=== PATIENT | female | born 1960 | race Caucasian/White ===

== ENCOUNTER 2020-04-20 13:34 | Emergency (ER) | payer SELFPAY ==
[~2020-04-20] VITALS: Ht 170.2 cm; Wt 86.2 kg
[2020-04-20] MEDS ORDERED: KETOROLAC TROMETH 60MG/2ML VIAL IM ONE (14:15)
[2020-04-20 15:08] VITALS: BP 135/95
== END 2020-04-20 15:19 | disposition home or self-care (01) ==
LOC: ER 13:34
DX: M16.12 Unilateral primary osteoarthritis, left hip (principal); M51.36 Other intervertebral disc degeneration, lumbar region; M54.16 Radiculopathy, lumbar region; F17.210 Nicotine dependence, cigarettes, uncomplicated; Z88.0 Allergy status to penicillin; Z88.5 Allergy status to narcotic agent
CPT/HCPCS: 72100; 73502; 96372; 99284; J1885

== ENCOUNTER 2023-03-17 18:32 | Emergency (ER) | payer OTHER | END 2023-03-17 19:44 | disposition left against medical advice (07) | LOC: ER 18:32 | DX: R06.02 Shortness of breath (principal); Z53.21 Procedure and treatment not carried out due to patient leaving prior to being seen by health care provider ==

== ENCOUNTER 2023-03-18 06:01 | Inpatient (IN) | payer OTHER ==
[~2023-03-18] VITALS: Ht 170.2 cm; Wt 79.1 kg
[2023-03-18 07:15] LABS: COVID19 ANTIGEN SOFIA FIA NEGATIVE (NEGATIVE)
[2023-03-18 07:35] LABS: Basophils # (auto) 0 10 ^3/uL (0-0.2); Basophils % (auto) 0.2 % (0.0-2.0); Eosinophils # (auto) 0 10 ^3/uL (0-0.8); Hematocrit 43.1 % (36.0-46.0); Hemoglobin 15.1 g/dL (12.2-16.2); Lymphocytes # (auto) 0.5 10 ^3/uL (0.4-5.4); Lymphocytes % (auto) 2.5 % (10.0-50.0); Mean Corpuscular Hemoglobin 33.2 pg (28.0-32.0); Mean Corpuscular Hgb Conc. 35.1 g/dL (32.0-36.0); Mean Corpuscular Volume 94.6 fL (80.0-100.0); Monocytes % (auto) 4.9 % (0.0-12.0); Neutrophils # (auto) 18.2 10 ^3/uL (1.6-8.6); Neutrophils % (auto) 92.4 % (37.0-80.0); Nucleated Red Blood Cells % 0.1 %; Red Blood Cells 4.55 10^6/uL (4.0-5.20); Red Cell Distribution Width 13.2 % (11.8-14.3); White Blood Cell 19.7 10^3/uL (4.4-10.8)
[2023-03-18] MEDS ORDERED: SODIUM CHLORIDE 0.9% 2,100 ML IV ONE (07:45)
[2023-03-18] MEDS ORDERED: levoFLOXacin 500MG 100 ML IV ONE (07:45)
[2023-03-18] MEDS ORDERED: VANCOMYCIN 1GM/250ML 250 ML IV ONE (07:45)
[2023-03-18 08:09] LABS: Alanine Aminotransferase 24 U/L (7-40); Alkaline Phosphatase 109 U/L (46-116); Anion Gap 12 (5-15); Aspartate Aminotransferase 21 U/L (13-40); BUN/Creatinine Ratio 18.9 (10.0-20.0); Blood Urea Nitrogen 46 mg/dL (9-23); Carbon Dioxide 23 mmol/L (20-30); Chloride 100 mmol/L (98-107); Glucose 127 mg/dL (74-106); Lactic Acid w/Reflex 2.1 mmol/L (0.4-2.0); Potassium 3.4 mmol/L (3.5-5.1); Sodium 135 mmol/L (136-145)
[2023-03-18 08:18] LABS: Calcium 9.1 mg/dL (8.5-10.1)
[2023-03-18 08:20] VITALS: PULSE 102; RESP 20; O2SAT 92
[2023-03-18 09:30] LABS: Magnesium 1.8 mg/dL (1.6-2.6)
[2023-03-18] MEDS ORDERED: ONDANSETRON HCL 4 MG/2 ML VIAL IV PRN (11:00)
[2023-03-18] MEDS ORDERED: POTASSIUM EFFERVESENT TAB 25 MEQ GT ONE (11:00)
[2023-03-18] MEDS ORDERED: MORPHINE SULFATE INJ 2 MG/ml SYRG IV PRN (11:00)
[2023-03-18] MEDS ORDERED: VANCOMYCIN PER PHARMACY 0 MG IV SCH (11:00)
[2023-03-18] MEDS ORDERED: DOCUSATE SOD 100 MG CAP PO PRN (11:00)
[2023-03-18] MEDS ORDERED: GASTROGRAFIN 30 ML SOL ONE (11:03)
[2023-03-18] MEDS: SODIUM CHLORIDE 0.9% 1,000 ML IV SCH ×2 (12:18→19:37)
[2023-03-18 15:51] LABS: Base Excess -2.3 mmol/L (-2.0-2.0)
[2023-03-18 15:56] LABS: Urine Bacteria FEW /hpf (None Seen); Urine Blood 3+ /uL (Negative); Urine Clarity CLOUDY (Clear); Urine Color Yellow (Yellow); Urine Hyaline Cast MOD /lpf (0 - 2); Urine Mucus FEW (None Seen); Urine Protein, UAD 3+ (Negative); Urine Specific Gravity 1.017 (1.001-1.035); Urine Urobilinogen Normal (Negative); Urine WBC 344 /hpf (0 - 5); Urine WBC Clumps PRESENT /hpf (None Seen)
[2023-03-18 16:01] LABS: Sodium Urine 28 mmol/L (40-220)
[2023-03-18 16:08] LABS: Amphetamine Screen, Urine Pos (NEGATIVE); Barbiturate Scree,Urine Neg (NEGATIVE); Benzodiazephine Screen, Urine Neg (NEGATIVE); Cannabinoid Screen, Urine Neg (NEGATIVE); Cocaine Screen, Urine Neg (NEGATIVE); Opiate Scree,Urine Neg (NEGATIVE); Phencyclidine Screen, Urine Neg (NEGATIVE)
[2023-03-18 16:09] LABS: Creatinine, Urine 136.59 mg/dL (30.0-125.0)
[2023-03-18 16:12] LABS: Protein, Urine 473.9 mg/dL (0.0-11.9); Urine Protein/Creatinine Ratio 3.47
[2023-03-18] MEDS: ACETAMINOPHEN 325 MG TAB PO PRN (17:02)
[2023-03-18] MEDS: TAMSULOSIN HYDROCHLORIDE 0.4 MG CAP PO SCH (18:16)
[2023-03-18 19:30] VITALS: PULSE 90; RESP 18
[2023-03-19 05:28] LABS: Basophils # (auto) 0 10 ^3/uL (0-0.2); Basophils % (auto) 0.1 % (0.0-2.0); Eosinophils # (auto) 0.1 10 ^3/uL (0-0.8); Eosinophils % (auto) 0.6 % (0.0-7.0); Hematocrit 35.7 % (36.0-46.0); Hemoglobin 12.3 g/dL (12.2-16.2); Lymphocytes # (auto) 0.3 10 ^3/uL (0.4-5.4); Lymphocytes % (auto) 3.3 % (10.0-50.0); Mean Corpuscular Hemoglobin 32.8 pg (28.0-32.0); Mean Corpuscular Hgb Conc. 34.3 g/dL (32.0-36.0); Mean Corpuscular Volume 95.5 fL (80.0-100.0); Monocytes # (auto) 0.6 10 ^3/uL (0-1.3); Monocytes % (auto) 6.2 % (0.0-12.0); Neutrophils # (auto) 9.3 10 ^3/uL (1.6-8.6); Neutrophils % (auto) 89.8 % (37.0-80.0); Nucleated Red Blood Cells % 0.1 %; Red Blood Cells 3.74 10^6/uL (4.0-5.20); Red Cell Distribution Width 13.5 % (11.8-14.3); White Blood Cell 10.3 10^3/uL (4.4-10.8)
[2023-03-19] MEDS: SODIUM CHLORIDE 0.9% 1,000 ML IV SCH ×3 (05:34→20:20)
[2023-03-19 05:39] LABS: Alanine Aminotransferase 20 U/L (7-40); Alkaline Phosphatase 77 U/L (46-116); Anion Gap 11 (5-15); Aspartate Aminotransferase 24 U/L (13-40); BUN/Creatinine Ratio 29.7 (10.0-20.0); Bilirubin, Total 0.5 mg/dL (0.2-1.0); Blood Urea Nitrogen 49 mg/dL (9-23); Calcium 8.2 mg/dL (8.5-10.1); Carbon Dioxide 21 mmol/L (20-30); Glucose 87 mg/dL (74-106); Potassium 3.3 mmol/L (3.5-5.1); Sodium 143 mmol/L (136-145); Total Protein 4.7 g/dL (5.7-8.2)
[2023-03-19 06:07] LABS: Chloride 111 mmol/L (98-107)
[2023-03-19 07:06] LABS: RPR Non Reactive (Non Reactive)
[2023-03-19 07:45] VITALS: PULSE 92; RESP 18; O2SAT 91
[2023-03-19] MEDS ORDERED: levoFLOXacin 500MG 100 ML IV SCH (10:00)
[2023-03-19] MEDS: VANCOMYCIN 1GM/250ML 250 ML IV ONE ×2 (11:13→13:04)
[2023-03-19 13:00] VITALS: BP 146/78; PULSE 90; RESP 16; TEMP 98; O2SAT 94
[2023-03-19] MEDS ORDERED: ATOR40TA52 PO (15:05)
[2023-03-19] MEDS ORDERED: CLOP75TA70 PO (15:05)
[2023-03-19 15:23] VITALS: BP 146/78; PULSE 90; RESP 16; O2SAT 94
[2023-03-19] MEDS: ACETAMINOPHEN 325 MG TAB PO PRN (15:29)
[2023-03-19 17:00] VITALS: BP 128/72; PULSE 98; RESP 18; TEMP 98.2; O2SAT 92
[2023-03-19] MEDS: TAMSULOSIN HYDROCHLORIDE 0.4 MG CAP PO SCH (18:05)
[2023-03-19 20:00] VITALS: BP 116/66; PULSE 77; PULSE 80; RESP 20; TEMP 98.1; O2SAT 94
[2023-03-19 22:00] VITALS: BP_SYST 116; BP_SYST 98; BP_DIAS 52; BP_DIAS 66; PULSE 58; PULSE 80; RESP 16; RESP 26; TEMP 97.9; TEMP 98.1; O2SAT 94; O2SAT 97
[2023-03-20] VITALS (9 sets, daily range): BP systolic 115–135; BP diastolic 66–73; PULSE 70–90; RESP 16–20; TEMP 97.7–98.9; O2SAT 91–98
[2023-03-20] MEDS: SODIUM CHLORIDE 0.9% 1,000 ML IV SCH ×2 (00:54→11:52)
[2023-03-20 05:49] LABS: Basophils # (auto) 0 10 ^3/uL (0-0.2); Basophils % (auto) 0.3 % (0.0-2.0); Eosinophils # (auto) 0.1 10 ^3/uL (0-0.8); Hematocrit 37.3 % (36.0-46.0); Hemoglobin 12.5 g/dL (12.2-16.2); Lymphocytes # (auto) 0.5 10 ^3/uL (0.4-5.4); Lymphocytes % (auto) 5.7 % (10.0-50.0); Mean Corpuscular Hemoglobin 33.3 pg (28.0-32.0); Mean Corpuscular Hgb Conc. 33.6 g/dL (32.0-36.0); Mean Corpuscular Volume 99.3 fL (80.0-100.0); Monocytes % (auto) 10.3 % (0.0-12.0); Neutrophils # (auto) 7.7 10 ^3/uL (1.6-8.6); Neutrophils % (auto) 82.7 % (37.0-80.0); Nucleated Red Blood Cells % 0.1 %; Red Blood Cells 3.76 10^6/uL (4.0-5.20); Red Cell Distribution Width 14.3 % (11.8-14.3); White Blood Cell 9.3 10^3/uL (4.4-10.8)
[2023-03-20] MEDS: cefTRIAXone 1GM/50ML D5W 50 ML IV SCH (10:03)
[2023-03-20 10:11] LABS: Chloride 108 mmol/L (98-107); Potassium 3.1 mmol/L (3.5-5.1); Sodium 138 mmol/L (136-145)
[2023-03-20 10:12] LABS: Anion Gap 9 (5-15); Carbon Dioxide 21 mmol/L (20-30)
[2023-03-20 10:13] LABS: Calcium 8.5 mg/dL (8.5-10.1)
[2023-03-20 10:17] LABS: BUN/Creatinine Ratio 22.5 (10.0-20.0); Glucose 91 mg/dL (74-106)
[2023-03-20 10:21] LABS: Blood Urea Nitrogen 25 mg/dL (9-23)
[2023-03-20] MEDS ORDERED: ERGOCALCIFEROL 50,000 UNIT(1.25MG) CAP PO SCH (14:45)
[2023-03-20] MEDS ORDERED: POTASSIUM EFFERVESENT TAB 25 MEQ PO ONE (15:30)
[2023-03-20] MEDS: ACETAMINOPHEN 325 MG TAB PO PRN ×2 (17:07→19:23)
[2023-03-20] MEDS: TAMSULOSIN HYDROCHLORIDE 0.4 MG CAP PO SCH (17:12)
[2023-03-20] MEDS ORDERED: ALBUTEROL SULF 2.5 MG/0.5ML(0.5%) NEB SOLN NEB ONE (18:15)
[2023-03-20] MEDS ORDERED: IPRATROPIUM BROM 0.5 MG/2.5ML INH SOL NEB ONE (18:15)
[2023-03-20] MEDS ORDERED: IPRATROPIUM BROM 0.5 MG/2.5ML INH SOL ONE (18:18)
[2023-03-20] MEDS ORDERED: ALBUTEROL MEDNEB 2.5 mg/3ml NEB ONE (18:18)
[2023-03-20 19:22] LABS: Chloride 108 mmol/L (98-107); Sodium 137 mmol/L (136-145)
[2023-03-20 19:23] LABS: Anion Gap 7 (5-15); Calcium 8.1 mg/dL (8.5-10.1); Carbon Dioxide 22 mmol/L (20-30)
[2023-03-20 19:28] LABS: BUN/Creatinine Ratio 19.6 (10.0-20.0); Blood Urea Nitrogen 20 mg/dL (9-23); Glucose 83 mg/dL (74-106)
[2023-03-20 20:46] LABS: Base Excess -3.3 mmol/L (-2.0-2.0)
[2023-03-21] VITALS: BP 120/66; PULSE 71; RESP 19; TEMP 98.2; O2SAT 92
[2023-03-21 05:00] VITALS: BP 135/70; PULSE 69; RESP 20; TEMP 97.9; O2SAT 92
[2023-03-21 08:00] VITALS: BP 132/56; PULSE 68; PULSE 70; RESP 22; TEMP 98.2; O2SAT 94
[2023-03-21] MEDS: cefTRIAXone 1GM/50ML D5W 50 ML IV SCH (10:18)
[2023-03-21] MEDS ORDERED: POTASSIUM EFFERVESENT TAB 25 MEQ PO ONE (10:45)
[2023-03-21 12:00] VITALS: BP 150/75; PULSE 76; RESP 20; TEMP 98.3; O2SAT 92
[2023-03-21] MEDS ORDERED: CIPR250T3 PO (13:14)
[2023-03-21 16:00] VITALS: BP 129/63; PULSE 75; RESP 21; TEMP 98; O2SAT 93
[2023-03-21] MEDS: TAMSULOSIN HYDROCHLORIDE 0.4 MG CAP PO SCH (18:00)
== END 2023-03-21 19:05 | disposition home or self-care (01) | DRG 720 ==
LOC: ER 06:01 → TELE 11:08 → TELE-CENTR 03-19 14:15
PROVIDERS: ADMIT Nurse Practitioner Family; ATTEND Internal Medicine Pulmonary Disease
DX: A41.51 Sepsis due to Escherichia coli [E. coli] (principal); J96.01 Acute respiratory failure with hypoxia; N17.0 Acute kidney failure with tubular necrosis; G93.41 Metabolic encephalopathy; K56.1 Intussusception; E87.21 Acute metabolic acidosis; E87.1 Hypo-osmolality and hyponatremia; N13.6 Pyonephrosis; E87.6 Hypokalemia; Z20.822 Contact with and (suspected) exposure to COVID-19; Z86.718 Personal history of other venous thrombosis and embolism; F17.210 Nicotine dependence, cigarettes, uncomplicated; R91.1 Solitary pulmonary nodule; E55.9 Vitamin D deficiency, unspecified; F15.90 Other stimulant use, unspecified, uncomplicated; I10 Essential (primary) hypertension; R65.20 Severe sepsis without septic shock; Z88.0 Allergy status to penicillin; Z88.5 Allergy status to narcotic agent
CPT/HCPCS: 36415; 36600; 70450; 71045; 71046; 74176; 74250; 78582; 80048; 80053; 80202; 80307; 80320; 81001; 82306; 82570; 82607; 82805; 82962; 83605; 83735; 83880; 84156; 84300; 84443; 84484; 85025; 85379; 86592; 87040; 87077; 87086; 87186; 87426; 93005; 93970; 94640; 96365; 96366; 99291; G0378; J0696; J1956; J2405

== ENCOUNTER 2023-03-27 13:12 | Emergency (ER) | payer OTHER ==
[~2023-03-27] VITALS: Ht 170.2 cm; Wt 72.7 kg
[~2023-03-27 13:12] MED LIST: ATOR40TA52 PO; CIPR250T3 PO; CLOP75TA70 PO
[2023-03-27 13:34] VITALS: BP 131/70; PULSE 104; RESP 23; O2SAT 91
[2023-03-27] MEDS ORDERED: VANCOMYCIN 1GM/250ML 250 ML IV ONE (13:45)
[2023-03-27 14:06] LABS: Eosinophils # (auto) 0.1 10 ^3/uL (0-0.8); Hemoglobin 12.3 g/dL (12.2-16.2); Lymphocytes # (auto) 0.7 10 ^3/uL (0.4-5.4); Red Cell Distribution Width 13.2 % (11.8-14.3)
[2023-03-27 14:07] LABS: Basophils # (auto) 0.2 10 ^3/uL (0-0.2); Basophils % (auto) 0.8 % (0.0-2.0); Eosinophils % (auto) 0.5 % (0.0-7.0); Lymphocytes % (auto) 2.8 % (10.0-50.0); Mean Corpuscular Hgb Conc. 34.3 g/dL (32.0-36.0); Mean Corpuscular Volume 93.5 fL (80.0-100.0); Monocytes # (auto) 0.8 10 ^3/uL (0-1.3); Monocytes % (auto) 3.3 % (0.0-12.0); Neutrophils # (auto) 23.2 10 ^3/uL (1.6-8.6); Neutrophils % (auto) 92.6 % (37.0-80.0); Red Blood Cells 3.85 10^6/uL (4.0-5.20)
[2023-03-27 14:10] LABS: Urine Bacteria NONE SEEN /hpf (None Seen); Urine Blood Negative /uL (Negative); Urine Clarity Clear (Clear); Urine Color Yellow (Yellow); Urine Hyaline Cast FEW /lpf (0 - 2); Urine Mucus FEW (None Seen); Urine Protein, UAD TRACE (Negative); Urine Specific Gravity 1.011 (1.001-1.035); Urine Urobilinogen Normal (Negative); Urine WBC 7 /hpf (0 - 5); Urine pH 6.5 (5.0-8.0)
[2023-03-27 14:22] LABS: Alanine Aminotransferase 36 U/L (7-40); Albumin 3.3 g/dL (3.2-4.8); Alkaline Phosphatase 90 U/L (46-116); Anion Gap 8 (5-15); Aspartate Aminotransferase 25 U/L (13-40); BUN/Creatinine Ratio 15.9 (10.0-20.0); Bilirubin, Total 0.8 mg/dL (0.2-1.0); Blood Urea Nitrogen 14 mg/dL (9-23); Calcium 8.1 mg/dL (8.7-10.4); Carbon Dioxide 33 mmol/L (20-30); Chloride 99 mmol/L (98-107); Glucose 111 mg/dL (74-106); Sodium 140 mmol/L (136-145); Total Protein 5.3 g/dL (5.7-8.2)
[2023-03-27 14:25] LABS: Potassium 2.5 mmol/L (3.5-5.1)
[2023-03-27] MEDS ORDERED: POTASSIUM EFFERVESENT TAB 25 MEQ PO ONE (14:30)
[2023-03-27 15:03] LABS: Amphetamine Screen, Urine Neg (NEGATIVE); Barbiturate Scree,Urine Neg (NEGATIVE); Benzodiazephine Screen, Urine Neg (NEGATIVE); Cannabinoid Screen, Urine Neg (NEGATIVE); Cocaine Screen, Urine Neg (NEGATIVE); Opiate Scree,Urine Neg (NEGATIVE); Phencyclidine Screen, Urine Neg (NEGATIVE)
[2023-03-27] MEDS ORDERED: levoFLOXacin 750MG 150 ML IV ONE (16:15)
[2023-03-27] MEDS ORDERED: ACETAMINOPHEN 325 MG TAB PO PRN (16:45)
[2023-03-27] MEDS ORDERED: MORPHINE SULFATE INJ 2 MG/ml SYRG IV PRN (16:45)
[2023-03-27] MEDS ORDERED: NITROGLYCERIN 0.4 MG SL TAB SL PRN (16:45)
[2023-03-27] MEDS ORDERED: ALBUTEROL MEDNEB 2.5 mg/3ml NEB NEB SCH (18:00)
[2023-03-27] MEDS ORDERED: IPRATROPIUM BROM 0.5 MG/2.5ML INH SOL NEB SCH (18:00)
[2023-03-27] MEDS ORDERED: CLOPIDOGREL BISULFATE 75 MG TAB PO SCH (22:00)
[2023-03-27] MEDS ORDERED: PIPERACILLIN-TAZOB 3.375GM 100 ML IV SCH (22:00)
[2023-03-27] MEDS ORDERED: ATORVASTATIN 20 MG TAB PO SCH (22:00)
== END 2023-03-27 17:31 | disposition left against medical advice (07) ==
LOC: EDBD 13:12 → ER 13:12 → TELE 16:59 → UNDOADMIN 16:59 → ER 17:31
DX: E87.6 Hypokalemia (principal); J84.9 Interstitial pulmonary disease, unspecified; D72.829 Elevated white blood cell count, unspecified; Z79.899 Other long term (current) drug therapy
CPT/HCPCS: 36415; 71045; 80053; 80307; 81001; 83605; 84484; 85025; 87040; 93005